=== PATIENT | female | born 1980 | race Caucasian/White ===

== ENCOUNTER 2020-06-11 08:06 | Emergency (ER) | payer MEDICAID ==
[~2020-06-11] VITALS: Ht 162.6 cm; Wt 68.0 kg
--- NOTE | 2020-06-11 08:10 | NUR ---
Patient to ER bed 5 to gown for evaluation. Side rails up.
[2020-06-11 08:12] VITALS: BP_SYST 132
--- NOTE | 2020-06-11 08:12 | NUR ---
Pt came to ER for abd pain denies n/v/d rates pain 9/10 at this time. Currenlty resting in [facility], no distress noted, VSS.
--- NOTE | 2020-06-11 08:15 | NUR ---
ER at bedside examining patient.
[2020-06-11 09:02] LABS: BILIRUBIN,URINE NEGATIVE (NEGATIVE); CLARITY/URINE SL CLOUDY (CLEAR); COLOR,URINE YELLOW (YELLOW); GLUCOSE,URINE NEGATIVE (NEGATIVE); KETONES,URINE NEGATIVE (NEGATIVE); LEUKOCYTE ESTERASE ,URINE NEGATIVE (NEGATIVE); NITRITE, URINE NEGATIVE (NEGATIVE); PH,URINE 5.5 (5.0-8.0); PROTEIN URINE NEGATIVE (NEGATIVE); UROBILINOGEN,URINE 0.2 (0.2-1.0)
[2020-06-11 09:04] LABS: BLOOD, URINE TRACE (NEGATIVE)
--- NOTE | 2020-06-11 09:06 | NUR ---
Patient given written and verbal discharge instructions and verbalizes understanding. ER MD discussed with patient the results and treatment provided. Patient in stable condition. ID arm band removed. Rx of Milk of Magnesia given. Patient educated on pain management and to follow up with PMD. Pain Scale 0/10. Opportunity for questions provided and answered. Medication side effect fact sheet provided.
[2020-06-11 09:08] VITALS: BP_SYST 132
[2020-06-11 09:16] LABS: BACTERIA,URINE MODERATE /HPF (None Seen); WBC,URINE 0-3 /HPF (0-3)
== END 2020-06-11 09:06 | disposition home or self-care (01) ==
LOC: SED 08:06
DX: K59.00 Constipation, unspecified (principal); R10.30 Lower abdominal pain, unspecified
CPT/HCPCS: 81000-TC; 87086; 87186-TC; 99283

== ENCOUNTER 2020-06-17 16:52 | Emergency (ER) | payer MEDICAID ==
[~2020-06-17] VITALS: Ht 152.4 cm; Wt 73.5 kg
[2020-06-17 17:00] VITALS: BP_SYST 153
--- NOTE | 2020-06-17 17:05 | NUR ---
Patient triaged and placed in waiting room. VSS and patient appears in no acute distress at this time. Accompanied by son , awaiting available bed, and MD notified of need for MSE.
--- NOTE | 2020-06-17 17:07 | NUR ---
Pt brought by self , A&Ox4, pt presents to ER with bilateral earache and runny nose, skin pink and warm, cap refill <3, VSS, respirations even and unlabored,afebrile.
--- NOTE | 2020-06-17 17:15 | NUR ---
Dr Kruger evaluating patient at bedside.
[2020-06-17 18:54] VITALS: BP_SYST 142
--- NOTE | 2020-06-17 18:56 | NUR ---
Patient given written and verbal discharge instructions and verbalizes understanding. ER MD discussed with patient the results and treatment provided. Patient in stable condition. ID arm band removed. Rx of Amoxicillin and flonase given. Patient educated on pain management and to follow up with PMD. Pain Scale 3/10 . Opportunity for questions provided and answered. Medication side effect fact sheet provided.
== END 2020-06-17 18:54 | disposition home or self-care (01) ==
LOC: SED 16:52
DX: J34.9 Unspecified disorder of nose and nasal sinuses (principal)
CPT/HCPCS: 99283

== ENCOUNTER 2021-04-28 17:02 | Emergency (ER) | payer MEDICAID ==
[~2021-04-28] VITALS: Ht 144.8 cm; Wt 72.6 kg
[2021-04-28 17:26] VITALS: BP_SYST 126
[2021-04-28] MEDS: KETOROLAC TROMETHAMINE 30 MG VIAL IVP ONE (19:17)
[2021-04-28 19:24] LABS: BASOPHILS # (AUTO) 0.1 K/uL (0.0-0.2); BASOPHILS % (AUTO) 0.6 % (0.0-2.0); EOSINOPHILS # (AUTO) 0.1 K/uL (0.0-0.4); EOSINOPHILS % (AUTO) 0.8 % (0.0-4.0); HEMATOCRIT 33.5 % (36-48); HEMOGLOBIN 10.6 g/dL (12.0-16.0); LYMPHOCYTES # (AUTO) 3.1 K/uL (1.0-5.5); LYMPHOCYTES % (AUTO) 35.4 % (20.5-51.5); MEAN CORPUSCULAR HEMOGLOBIN 22 pg (27-31); MEAN CORPUSCULAR HGB CONC 32 % (32-36); MEAN CORPUSCULAR VOLUME 69 fL (79.0-98.0); MONOCYTES # (AUTO) 0.7 K/uL (0.0-1.0); MONOCYTES % (AUTO) 7.8 % (1.7-9.3); NEUTROPHILS # (AUTO) 4.9 K/uL (1.8-7.7); NEUTROPHILS % (AUTO) 55.4 % (40.0-70.0); PLATELET COUNT (AUTO) 313 K/uL (130-430); RED BLOOD CELL COUNT(AUTO) 4.89 MIL/uL (4.2-6.2); WHITE BLOOD COUNT (AUTO) 8.8 K/uL (4.8-10.8)
[2021-04-28 19:42] LABS: CALCIUM 9.4 mg/dL (8.4-11.0); CREATININE 0.67 mg/dL (0.55-1.30); POTASSIUM 3.9 mmol/L (3.5-5.1)
[2021-04-28 19:48] LABS: ALBUMIN 3.6 g/dL (3.4-4.8); TOTAL BILIRUBIN 0.3 mg/dL (0.0-1.0)
[2021-04-28 19:59] LABS: BILIRUBIN,URINE NEGATIVE (NEGATIVE); BLOOD, URINE NEGATIVE (NEGATIVE); CLARITY/URINE CLEAR (CLEAR); GLUCOSE,URINE NEGATIVE (NEGATIVE); KETONES,URINE NEGATIVE (NEGATIVE); LEUKOCYTE ESTERASE ,URINE NEGATIVE (NEGATIVE); NITRITE, URINE NEGATIVE (NEGATIVE); PROTEIN URINE NEGATIVE (NEGATIVE); UROBILINOGEN,URINE 0.2 (0.2-1.0)
[2021-04-28 20:00] LABS: COLOR,URINE STRAW (YELLOW)
[2021-04-28 20:17] LABS: ERYTHROCYTE SEDIMENTATION RATE 21 MM/HR (0-20)
[2021-04-28] MEDS: MORPHINE 4 MG INJ. 4 MG/ML VIAL IVP ONE (22:07)
[2021-04-28] MEDS ORDERED: TRAM50TA PO (22:44)
[2021-04-28] MEDS ORDERED: NAPR-688 PO (22:44)
[2021-04-28 22:53] VITALS: BP_SYST 122
== END 2021-04-28 22:53 | disposition home or self-care (01) ==
LOC: SED 17:02
DX: M94.0 Chondrocostal junction syndrome [Tietze] (principal); N61.0 Mastitis without abscess; Z79.899 Other long term (current) drug therapy
CPT/HCPCS: 36415; 71045; 71250; 76376; 80053; 81003; 81025; 84484; 85025; 85651; 96374; 96375; 99285; J1885; J2270

== ENCOUNTER 2021-11-08 17:08 | Emergency (ER) | payer MEDICAID, SELFPAY ==
[~2021-11-08] VITALS: Ht 149.9 cm; Wt 81.6 kg
[2021-11-08 17:08] VITALS: BP_SYST 123
[~2021-11-08 17:08] MED LIST: NAPR-688 PO; TRAM50TA PO
--- NOTE | 2021-11-08 17:12 | NUR ---
Patient triaged and placed in waiting room. VSS and patient appears in no acute distress at this time. Accompanied by SPOUSE, awaiting available bed, and MD notified of need for MSE.
--- NOTE | 2021-11-08 17:38 | NUR ---
DR SHEPHERD OUT TO TRIAGE ROOM TO EVALUATION
[2021-11-08] MEDS ORDERED: TETRACAINE HCL/PF 0.5% OPHTHALMIC DROPS 4 ML OP ONE (18:00)
[2021-11-08] MEDS ORDERED: FLUORESCEIN SODIUM 1 MG OPHTHALMIC STRIP OP ONE (18:00)
--- NOTE | 2021-11-08 18:07 | NUR ---
MEDICATION GIVEN TO DR SHEPHERD FOR ADMINISTRATION
[2021-11-08] MEDS ORDERED: ERYEYE EACH EYE (18:37)
[2021-11-08] MEDS ORDERED: [UNRECOGNIZED DRUG - CODE] OP (18:37)
--- NOTE | 2021-11-08 18:48 | NUR ---
Patient given written and verbal discharge instructions and verbalizes understanding. ER MD discussed with patient the results and treatment provided. Patient in stable condition. ID arm band removed. Rx of ERTHROMYCIN EYE OINT, LUBRICANT EYE DROPS given. Patient educated on pain management and to follow up with PMD. Pain Scale 0/10. Opportunity for questions provided and answered. Medication side effect fact sheet provided.
== END 2021-11-08 18:47 | disposition home or self-care (01) ==
LOC: SED 17:08
DX: S05.02XA Injury of conjunctiva and corneal abrasion without foreign body, left eye, initial encounter (principal); S05.01XA Injury of conjunctiva and corneal abrasion without foreign body, right eye, initial encounter; H11.32 Conjunctival hemorrhage, left eye; H11.152 Pinguecula, left eye; X58.XXXA Exposure to other specified factors, initial encounter; Y93.89 Activity, other specified; Y92.89 Other specified places as the place of occurrence of the external cause; Y99.8 Other external cause status
CPT/HCPCS: 99283

== ENCOUNTER 2021-11-11 20:53 | Emergency (ER) | payer MEDICAID, SELFPAY ==
[~2021-11-11] VITALS: Ht 144.8 cm; Wt 81.6 kg
[~2021-11-11 20:53] MED LIST changes: +ERYEYE EACH EYE; +[UNRECOGNIZED DRUG - CODE] OP
[2021-11-11 20:59] VITALS: BP_SYST 128
[2021-11-11] MEDS ORDERED: TETRACAINE HCL/PF 0.5% OPHTHALMIC DROPS 4 ML OP ONE (23:15)
[2021-11-11] MEDS ORDERED: FLUORESCEIN SODIUM 1 MG OPHTHALMIC STRIP OP ONE (23:15)
[2021-11-12 04:00] VITALS: BP_SYST 131
== END 2021-11-12 04:00 | disposition home or self-care (01) ==
LOC: SED 20:53
DX: H20.9 Unspecified iridocyclitis (principal); H11.32 Conjunctival hemorrhage, left eye
CPT/HCPCS: 99282

== ENCOUNTER 2022-11-04 11:48 | Emergency (ER) | payer MEDICAID ==
[~2022-11-04] VITALS: Ht 144.8 cm; Wt 77.1 kg
[2022-11-04 11:50] VITALS: BP_SYST 117
--- NOTE | 2022-11-04 11:55 | NUR ---
Patient triaged and placed in waiting room. VSS and patient appears in no acute distress at this time. Accompanied by FAMILY, awaiting available bed, and MD notified of need for MSE.
--- NOTE | 2022-11-04 12:36 | NUR ---
DR CHOWDHURY OUT TO TRIAGE ROOM FOR EVALUATION
[2022-11-04] MEDS ORDERED: PSEU30TA36 PO (13:08)
[2022-11-04] MEDS ORDERED: AMOX500C2 PO (13:08)
[2022-11-04] MEDS ORDERED: CORTEARS LEFT EAR (13:08)
[2022-11-04] MEDS ORDERED: IBUP-1969 PO (13:08)
[2022-11-04 14:07] VITALS: BP_SYST 117
--- NOTE | 2022-11-04 14:08 | NUR ---
Patient given written and verbal discharge instructions and verbalizes understanding. ER MD discussed with patient the results and treatment provided. Patient in stable condition. ID arm band removed. Rx of AMOXICILLIN, CORTISPORIN EAR DROPS, IBUPROFEN AND SUDAFED given. Patient educated on pain management and to follow up with PMD. Pain Scale 0/10. Opportunity for questions provided and answered. Medication side effect fact sheet provided.
== END 2022-11-04 14:08 | disposition home or self-care (01) ==
LOC: SED 11:48
DX: H60.92 Unspecified otitis externa, left ear (principal); R05.9 Cough, unspecified; Z79.899 Other long term (current) drug therapy
CPT/HCPCS: 99283